=== PATIENT | male | born 1975 | race Caucasian/White ===

== ENCOUNTER 2019-11-24 11:43 | Emergency (ER) | payer BC ==
[~2019-11-24] VITALS: Ht 185.4 cm; Wt 113.4 kg
[~2019-11-24 11:43] MED LIST: AMBIEN 5 MG TABL5 M1 PO; AUGMENTIN 875875 MG PO; CELEBREX 200 M200 M1 PO; DIOVAN 80 MG TA80 M1; DIOVAN 80 MG TA80 M1 PO; EAR WAX REMOVAL15 ML OT; HYDROCODON-ACE1 EAC7 PO; LEVEMIR FL100 UNIT/1; LEVEMIR SUBQ; LIORESAL 10 MG10 MG PO; MSL20MG/ML PO; PRAVACHOL20 MG PO; PREDNISONE50 MG PO; SANDOSTATIN30 MG/KIT IM; VICTOZA 3-0.6 MG/0.1 SQ; VICTOZA0.6 MG/0.1 SUBQ; ZOMETA4 MG/5 ML IV
[2019-11-24 12:07] LABS: ABSOLUTE EOSINOPHILS 0.1 thou/uL (0.0-0.7); ABSOLUTE LYMPHOCYTES 0.4 thou/uL (0.8-5.3); ABSOLUTE MONOCYTES 0.3 thou/uL (0.0-1.2); ABSOLUTE NEUTROPHILS 2.3 thou/uL (1.6-8.1); BASOPHILS 0.5 %; HEMATOCRIT 41.9 % (42.0-52.0); HEMOGLOBIN 13.9 gm/dL (14.0-18.0); MCH 31.9 pg (26.0-34.0); MCHC 33.2 g/dL (28.0-37.0); MCV 96.2 fL (80.0-100.0); MONOCYTES 10.5 %; MPV 8.7 fl. (7.2-11.1); NUCLEATED RBCS 0 /100WBC; PLATELET COUNT* 76 thou/uL (150-400); RBC 4.35 mil/uL (4.50-6.00); RDW-CV 21.7 % (10.5-14.5); WBC 3.2 thou/uL (4.0-11.0)
[2019-11-24 12:12] LABS: URINE BILIRUBIN NEGATIVE (Negative); URINE BLOOD NEGATIVE (Negative); URINE CLARITY CLEAR; URINE COLOR YELLOW; URINE GLUCOSE-RANDOM NEGATIVE (Negative); URINE KETONES NEGATIVE (Negative); URINE LEUKOCYTES-REFLEX NEGATIVE (Negative); URINE NITRITE-REFLEX NEGATIVE (Negative); URINE PROTEIN NEGATIVE (Negative); URINE SPECIFIC GRAVITY 1.025 (1.005-1.030)
[2019-11-24 12:15] LABS: CALCIUM 8.8 mg/dL (8.5-10.1); CREATININE 0.9 mg/dL (0.6-1.3); POTASSIUM 3.7 mmol/L (3.5-5.1)
[2019-11-24 12:26] LABS: ALBUMIN 3.6 g/dL (3.4-5.0); ALCOHOL < 10 mg/dL (<10); SALICYLATE < 2.8 mg/dL (2.8-20.0); TOTAL BILIRUBIN 0.8 mg/dL (<0.1-1.0); TOTAL PROTEIN 8.4 g/dL (6.4-8.2)
[2019-11-24 12:28] LABS: ACETAMINOPHEN < 2 ug/mL (10-30)
[2019-11-24 12:31] LABS: AMP/METHAMP Negative (Negative); BARBITURATES Negative (Negative); BENZODIAZEPINES Negative (Negative); COCAINE Negative (Negative); METHADONE Negative (Negative); OPIATES POSITIVE (Negative); PCP Negative (Negative); THC POSITIVE (Negative)
[2019-11-24] MEDS ORDERED: [UNRECOGNIZED DRUG - OTHER] (12:35)
[2019-11-24 17:49] VITALS: BP 143/75
== END 2019-11-24 17:50 | disposition home or self-care (01) ==
LOC: M.ERS 11:43
PROVIDERS: Emergency Medicine Emergency Medical Services
DX: F32.9 Major depressive disorder, single episode, unspecified (principal); I10 Essential (primary) hypertension; E11.9 Type 2 diabetes mellitus without complications; Z79.899 Other long term (current) drug therapy

== ENCOUNTER 2020-03-31 08:05 | Emergency (ER) | payer BC ==
[~2020-03-31] VITALS: Ht 182.9 cm; Wt 136.1 kg
[~2020-03-31 08:05] MED LIST changes: +[UNRECOGNIZED DRUG - OTHER]
[2020-03-31] MEDS ORDERED: MS CONTIN 30 MG30 M1 PO (08:18)
[2020-03-31] MEDS ORDERED: KEFLEX500 M1 PO (10:04)
[2020-03-31 10:10] VITALS: BP 140/92
== END 2020-03-31 10:10 | disposition home or self-care (01) ==
LOC: M.ERS 08:05
DX: S01.511A Laceration without foreign body of lip, initial encounter (principal); S01.81XA Laceration without foreign body of other part of head, initial encounter; I10 Essential (primary) hypertension; E11.9 Type 2 diabetes mellitus without complications; G47.30 Sleep apnea, unspecified; Z85.89 Personal history of malignant neoplasm of other organs and systems; W01.0XXA Fall on same level from slipping, tripping and stumbling without subsequent striking against object, initial encounter; Y93.89 Activity, other specified; Y92.89 Other specified places as the place of occurrence of the external cause; Y99.8 Other external cause status